=== PATIENT | female | born 1975 | race Caucasian/White ===

== ENCOUNTER 2016-09-08 22:08 | Emergency (ER) | payer MEDICAID ==
[~2016-09-08] VITALS: Ht 175.3 cm; Wt 74.8 kg
[~2016-09-08 22:08] MED LIST: BACTRIM-DS1 EA ORAL; MELOXICAM7.5 MG PO; NORCO 10-325 T1 EACH ORAL; SERTRALINE HCL100 MG PO; VIBRAMYCIN100 MG ORAL
[2016-09-09] MEDS ORDERED: Morphine Sulfate 4mg/ml Inj IM ONE (00:15)
[2016-09-09] MEDS ORDERED: Cephalexin 500mg cap ORAL ONE (00:15)
[2016-09-09] MEDS ORDERED: PredniSONE 20mg tab ORAL ONE (00:15)
[2016-09-09 00:40] VITALS: BP_SYST 122; BP_SYST 129; BP_DIAS 78; BP_DIAS 81
[2016-09-09] MEDS ORDERED: KEFLEX500 MG ORAL (00:48)
[2016-09-09] MEDS ORDERED: PREDNISONE20 MG ORAL (00:48)
[2016-09-09] MEDS ORDERED: NORCO 5-325 TA1 EACH ORAL (00:48)
--- NOTE | 2016-09-09 05:26 | Emergency Room Report ---
History of Present Illness General Chief Complaint: Upper Extremity Injury Source: Patient Present Illness HPI 41-year-old female presents to ED complaining of right hand pain and swelling x2 days. Patient notes history of lupus and states she is likely having a lupus flare. No swelling to the right wrist. Pain as throbbing, 10 out of 10, nonradiating. Denies any fevers or chills. Patient also notes redness and pain to her right index finger. Believes that she may have been bitten by an insect yesterday. Denies any discharge. No other aggravating relieving factors. Denies any other associated symptoms Allergies: Coded Allergies: AZITHROMYCIN (Verified Allergy, Intermediate, 11/15/15) SULFAMETHOXAZOLE (Verified Allergy, Intermediate, 12/01/15) TRIMETHOPRIM (Verified Allergy, Intermediate, 12/01/15) Shrimp (Verified Allergy, Unknown, 09/08/16) Patient History Past Medical History: other - lupus Past Surgical History: none Pertinent Family History: none Social History: Denies: alcohol use, drug use, smoking Last Menstrual Period: 2 WEEKS AGO Now: No : 2 Immunizations: UTD Reviewed Nursing Documentation: PMH: Agreed, PSxH: Agreed Nursing Documentation-PMH Hx Cardiac Problems: No - RA Hx Cancer: Yes - CERVICAL CA 2010 Hx Seizures: No - LUPUS Review of Systems All Other Systems: negative except mentioned in HPI Physical Exam Vital Signs Date Time Temp Pulse Resp B/P Pulse Ox O2 Delivery O2 Flow Rate FiO2 09/08/16 22:17 97.9 74 18 122/78 96 Room Air Sp02 EP Interpretation: reviewed, normal General Appearance: no apparent distress, alert, GCS 15, non-toxic Head: normocephalic Eyes: bilateral eye PERRL, bilateral eye normal inspection ENT: normal ENT inspection Neck: normal inspection Respiratory: normal inspection Cardiovascular #1: normal inspection Gastrointestinal: normal inspection Rectal: deferred Genitourinary: no CVA tenderness Musculoskeletal: swelling - R wrist., tender - erythema/induration R index finger Neurologic: alert, oriented x3, responsive, motor strength/tone normal, sensory intact, speech normal Psychiatric: normal inspection Skin: normal inspection Lymphatic: normal inspection Medical Decision Making Diagnostic Impression: Primary Impression: Lupus Qualified Codes: M32.9 - Systemic lupus erythematosus, unspecified Additional Impression: Cellulitis Qualified Codes: L03.011 - Cellulitis of right finger ER Course Hospital Course 41-year-old female presents to ED with redness, swelling to right wrist Differential diagnoses include: Cellulitis, dermatitis, insect bite, abscess Clinical course Patient placed on stretcher. After initial history, physical exam reveals a young female in no acute distress. On exam there is a site for mild erythema and induration to the right index finger. There is no fluctuance. There is no tenderness. There is some mild swelling to the right wrist in general. Patient states that is typical of her lupus flare Given morphine IM, given prednisone and given Keflex in ED Diagnosis - lupus, cellulitis of finger stable and discharged to home with prescription for prednisone, [place], Keflex. Instructed to followup with PMD. Instructed return to ED if symptoms recur or worsen Last Vital Signs Date Time Temp Pulse Resp B/P Pulse Ox O2 Delivery O2 Flow Rate FiO2 09/09/16 00:40 68 18 129/81 99 Room Air 09/09/16 00:40 97.9 Status: improved Disposition: HOME, SELF-CARE Condition: Stable Scripts Hydrocodone Bit/Acetaminophen 5-325* (NORCO 5-325*) 1 Each Tablet 1 TAB ORAL Q6H Y for For Pain, #10 TAB 0 Refills Prov: OLEKSANDR JAVIER M.D. 09/09/16 Prednisone* (PREDNISONE*) 20 Mg Tablet 40 MG ORAL DAILY, #10 TAB Prov: OLEKSANDR JAVIER M.D. 09/09/16 Cephalexin* (KEFLEX*) 500 Mg Capsule 500 MG ORAL Q6H, #28 CAP 0 Refills Prov: OLEKSANDR JAVIER M.D. 09/09/16 Referrals: [facility],REFERRING (PCP) Patient Instructions: Cellulitis, [id number] OLEKSANDR JAVIER M.D. September 09, 2016 05:26
== END 2016-09-09 00:45 | disposition home or self-care (01) ==
LOC: EMR 22:50
DX: M32.9 Systemic lupus erythematosus, unspecified (principal); L03.011 Cellulitis of right finger; M79.641 Pain in right hand; Z88.2 Allergy status to sulfonamides; M79.89 Other specified soft tissue disorders; Z88.1 Allergy status to other antibiotic agents; Z91.013 Allergy to seafood; Z85.41 Personal history of malignant neoplasm of cervix uteri
CPT/HCPCS: 96372; 99284; J2270

== ENCOUNTER 2017-06-30 21:01 | Emergency (ER) | payer MEDICAID ==
[~2017-06-30] VITALS: Ht 175.3 cm; Wt 77.1 kg
[~2017-06-30 21:01] MED LIST changes: +KEFLEX500 MG ORAL; +NORCO 5-325 TA1 EACH ORAL; +PREDNISONE20 MG ORAL
--- NOTE | 2017-06-30 21:37 | Emergency Room Report ---
History of Present Illness General Chief Complaint: Back Pain-No Injury Source: Patient Present Illness HPI Patient presents complaining that she is having a flareup of her lupus she reports that she also has right flank and right back pain that has also exacerbated Questionable low-grade fever at home Denies any headache and has been neck pain and denies any chest pain or shortness of breath denies any vomiting or diarrhea Patient feels achy with myalgia diffusely in her upper arms and legs as well denies any recent travel denies any trauma Allergies: Coded Allergies: SULFAMETHOXAZOLE (Verified Allergy, Intermediate, 12/01/15) TRIMETHOPRIM (Verified Allergy, Intermediate, 12/01/15) CITALOPRAM (Verified Allergy, Unknown, 06/30/17) ERYTHROMYCIN BASE (Verified Allergy, Unknown, 06/30/17) Shrimp (Verified Allergy, Unknown, 09/08/16) Patient History Past Medical History: see triage record Pertinent Family History: none Last Menstrual Period: 2 months ago Reviewed Nursing Documentation: PMH: Agreed, PSxH: Agreed Nursing Documentation-PMH Hx Cardiac Problems: No - RA Hx Cancer: Yes - CERVICAL CA 2010 Hx Seizures: No - LUPUS Review of Systems All Other Systems: negative except mentioned in HPI Physical Exam Vital Signs Date Time Temp Pulse Resp B/P (MAP) Pulse Ox O2 Delivery O2 Flow Rate FiO2 06/30/17 21:09 98.6 77 16 103/ 97 Room Air 98.6 Sp02 EP Interpretation: reviewed, normal General Appearance: well appearing, no apparent distress Head: normocephalic, atraumatic Eyes: bilateral eye PERRL, bilateral eye EOMI ENT: hearing grossly normal, normal pharynx, TMs + canals normal, uvula midline Neck: full range of motion, supple, no meningismus, no bony tend Respiratory: lungs clear, normal breath sounds, no rhonchi, no respiratory distress, no retraction, no accessory muscle use Cardiovascular #1: normal peripheral pulses, regular rate, rhythm, no edema, no gallop, no JVD, no murmur Gastrointestinal: normal bowel sounds, non tender, soft, no mass, no organomegaly, non-distended, no guarding, no hernia, no pulsatile mass, no rebound Genitourinary: no CVA tenderness Musculoskeletal: normal inspection Neurologic: oriented x3, responsive, family support worker III-XII nml as tested, motor strength/ tone normal, sensory intact Psychiatric: mood/affect normal Skin: normal color, no rash, warm/dry, palpation normal Lymphatic: normal inspection, no adenopathy Medical Decision Making Diagnostic Impression: Primary Impression: lupus flare Additional Impression: Lupus (systemic lupus erythematosus) ER Course Multiple differentials considered Including but not limited to hemodynamic, metabolic Pulmonary pathology such as pulmonary embolism Cardiac pathology Patient otherwise appears comfortable lung sounds are clear no signs of any hypoxia or tachycardia Patient's urine sample is also clear Chest x-ray normal has felt significantly better This I will have initial conservative outpatient trial Labs Test 06/30/17 21:49 Urine Color Yellow Urine Appearance Clear Urine pH 7 (4.5-8.0) Urine Specific [place] 1.015 (1.005-1.035) Urine Protein Negative (NEGATIVE) Urine Glucose (UA) Negative (NEGATIVE) Urine Ketones Negative (NEGATIVE) Urine Occult Blood 1+ (NEGATIVE) Urine Nitrite Negative (NEGATIVE) Urine Bilirubin Negative (NEGATIVE) Urine Urobilinogen 1 MG/DL (0.0-1.0) Urine Leukocyte Esterase 1+ (NEGATIVE) Urine RBC 2-4 /HPF (0 - 2) Urine WBC 0-2 /HPF (0 - 2) Urine Squamous Epithelial Cells Few /LPF (NONE/OCC) Urine Bacteria Few /HPF (NONE) Urine HCG, Qualitative Negative Chest X-Ray Diagnostic Results Chest X-Ray Diagnostic Results : Chest X-Ray Ordered: Yes # of Views/Limited/Complete: 1 View Indication: Chest Pain EP Interpretation: Yes Interpretation: no consolidation, no effusion, no pneumothorax, no acute cardiopulmonary disease Impression: No acute disease Electronically Signed by: Romario Storey DO Last Vital Signs Date Time Temp Pulse Resp B/P (MAP) Pulse Ox O2 Delivery O2 Flow Rate FiO2 06/30/17 21:09 98.6 77 16 103/ 97 Room Air 98.6 Status: improved Disposition: HOME, SELF-CARE Condition: Improved Scripts Hydrocodone Bit/Acetaminophen 5-325* (NORCO 5-325*) 1 Each Tablet 1 TAB ORAL Q6H Y for For Pain, #5 TAB 0 Refills Prov: ROMARIO STOREY.Adan 06/30/17 Prednisone* (PREDNISONE*) 20 Mg Tablet 20 MG ORAL BID, #10 TAB Prov: ROMARIO STOREY D.O. 06/30/17 Additional Instructions: Patient is provided with the discharge instructions notified to follow up with primary doctor in the next 2-3 days otherwise return to the er with any worsening symptoms. Please note that this report is being documented using [employer] technology. This can lead to erroneous entry secondary to incorrect interpretation by the dictating instrument. ROMARIO STOREY D.O. Jun 30, 2017 21:37
[2017-06-30] MEDS ORDERED: Morphine Sulfate 10mg/ml Inj IM ONE (21:45)
[2017-06-30 22:09] LABS: APPEARANCE,URINE CLEAR; BILIRUBIN, URINE NEGATIVE (NEGATIVE); GLUCOSE, URINE (UA) NEGATIVE (NEGATIVE); KETONES,URINE NEGATIVE (NEGATIVE); LEUKOCYTE ESTERASE ,URINE 1+ (NEGATIVE); NITRITE,URINE NEGATIVE (NEGATIVE); PH,URINE 7 (4.5-8.0); PROTEIN,URINE NEGATIVE (NEGATIVE); UROBILINOGEN,URINE 1 MG/DL (0.0-1.0)
[2017-06-30 22:12] LABS: COLOR,URINE YELLOW
[2017-06-30] MEDS ORDERED: NORCO 5-325 TA1 EACH ORAL (22:23)
[2017-06-30] MEDS ORDERED: PREDNISONE20 MG ORAL (22:23)
[2017-06-30 22:41] VITALS: BP 103/68
--- NOTE | 2017-07-01 10:20 | Diagnostic Imaging Report ---
Indication: Dyspnea Comparison: None A single view chest radiograph was obtained. Findings: Cardiomediastinal appearance is within normal limits for age. Pulmonary vascularity is appropriate. The diaphragmatic contour is smooth and costophrenic angles are sharp. No pleural effusions are identified. The bones are unremarkable. Impression: No acute findings
== END 2017-06-30 22:44 | disposition home or self-care (01) ==
LOC: EMR 22:20
DX: M32.9 Systemic lupus erythematosus, unspecified (principal); Z85.41 Personal history of malignant neoplasm of cervix uteri; Z88.2 Allergy status to sulfonamides; Z88.1 Allergy status to other antibiotic agents; Z91.013 Allergy to seafood
CPT/HCPCS: 71045; 81003; 81025; 96372; 99284; J2270; J7512

== ENCOUNTER 2017-07-02 20:38 | Emergency (ER) | payer MEDICAID ==
[~2017-07-02] VITALS: Ht 175.3 cm; Wt 77.1 kg
[2017-07-02 21:56] LABS: APPEARANCE,URINE SLIGHTLY CLOUDY; BILIRUBIN, URINE NEGATIVE (NEGATIVE); GLUCOSE, URINE (UA) NEGATIVE (NEGATIVE); KETONES,URINE NEGATIVE (NEGATIVE); LEUKOCYTE ESTERASE ,URINE 1+ (NEGATIVE); NITRITE,URINE NEGATIVE (NEGATIVE); PH,URINE 5 (4.5-8.0); PROTEIN,URINE NEGATIVE (NEGATIVE); UROBILINOGEN,URINE NORMAL MG/DL (0.0-1.0)
[2017-07-02 21:58] LABS: COLOR,URINE YELLOW
--- NOTE | 2017-07-02 23:21 | Emergency Room Report ---
History of Present Illness General Chief Complaint: Lower Back Pain or Injury Source: Patient, Medical Record Present Illness HPI This is a 42-year-old female with a history of lupus. She has a little bit exacerbation about 2 days ago. Was seen here and started on steroid. Since then she's been complaining of back pain with increasing urinary frequency. No dysuria or hematuria. She was concerned that she may have urine tract infection. Pain is better after pain medication. Allergies: Coded Allergies: SULFAMETHOXAZOLE (Verified Allergy, Intermediate, 12/01/15) TRIMETHOPRIM (Verified Allergy, Intermediate, 12/01/15) CITALOPRAM (Verified Allergy, Unknown, 06/30/17) ERYTHROMYCIN BASE (Verified Allergy, Unknown, 06/30/17) Shrimp (Verified Allergy, Unknown, 09/08/16) Patient History Past Medical History: see triage record, old chart reviewed Past Surgical History: other Pertinent Family History: none Social History: Denies: smoking Last Menstrual Period: 2 months ago Now: No : 2 Immunizations: other Reviewed Nursing Documentation: PMH: Agreed, PSxH: Agreed Nursing Documentation-PMH Hx Cardiac Problems: No - RA Hx Cancer: Yes - CERVICAL CA 2010 Hx Seizures: No - LUPUS Review of Systems Eye: Denies: eye pain, blurred vision ENT: Denies: ear pain, nose congestion, throat swelling Respiratory: Denies: cough, shortness of breath Cardiovascular: Denies: chest pain, palpitations Gastrointestinal: Denies: abdominal pain, diarrhea, nausea, vomiting Genitourinary: Reports: frequency Musculoskeletal: Reports: back pain, Denies: joint pain Skin: Denies: rash Neurological: Denies: headache, numbness Endocrine: Denies: increased thirst, increased urine Hematologic/Lymphatic: Denies: easy bruising All Other Systems: negative except mentioned in HPI Physical Exam Vital Signs Date Time Temp Pulse Resp B/P (MAP) Pulse Ox O2 Delivery O2 Flow Rate FiO2 07/02/17 21:09 98.5 61 18 110/68 99 Room Air 98.4 vitals normal Sp02 EP Interpretation: reviewed, normal General Appearance: well appearing, no apparent distress, alert Head: normocephalic, atraumatic Eyes: bilateral eye PERRL, bilateral eye EOMI ENT: hearing grossly normal, normal pharynx Neck: full range of motion, supple, no meningismus Respiratory: chest non-tender, lungs clear, normal breath sounds Cardiovascular #1: regular rate, rhythm, no murmur Gastrointestinal: normal bowel sounds, non tender, no mass, no organomegaly, no bruit, non-distended Musculoskeletal: back normal, gait/station normal, normal range of motion Psychiatric: mood/affect normal Skin: warm/dry Medical Decision Making Diagnostic Impression: Primary Impression: Low back pain Qualified Codes: M54.5 - Low back pain ER Course Patient with back pain. No evidence of UTI. She does have calcium oxalate in her urine still I got a CT scan to rule out kidney stone. That was negative. We'll discharge home with reassurance. No evidence of infection. No evidence of dissection or acute abdomen. No evidence of cauda equina syndrome, spinal epidural abscess or neoplastic process. CT/MRI/US Diagnostic Results CT/MRI/US Diagnostic Results : Imaging Test Ordered: ct abd /pelvis Impression Neg per radiologist. Last Vital Signs Date Time Temp Pulse Resp B/P (MAP) Pulse Ox O2 Delivery O2 Flow Rate FiO2 07/02/17 21:09 98.5 61 18 110/68 99 Room Air 98.4 Status: improved Disposition: HOME, SELF-CARE Condition: Stable Patient Instructions: Back Pain, Adult Additional Instructions: Follow-up with doctor in 7 days. Return if worse. HANK REAGAN M.D. Jul 02, 2017 23:21
[2017-07-02 23:32] VITALS: BP 115/71
--- NOTE | 2017-07-03 09:11 | Diagnostic Imaging Report ---
Indication: Urinary frequency and discomfort. History of lupus Technique: Spiral acquisitions obtained through the abdomen and pelvis. No oral contrast utilized, per emergency room physician request No IV contrast utilized, per referring physician request.. Multiplanar reconstructions were generated. Total dose length product 943.33 mGycm. CTDIvol(s) 17.93 mGy. Dose reduction achieved using automated exposure control Comparison: None Findings: No renal or ureteral calculi, hydronephrosis, hydroureter, or significant perinephric fat stranding. Lack of IV contrast limits assessment of the renal parenchyma. There is a 16 mm cyst in the medial right upper pole. Incidental finding is noted of a circumaortic left renal vein Lack of IV contrast limits assessment of the other solid organs. The liver, gallbladder, bile ducts, pancreas, spleen, adrenals are unremarkable. No retroperitoneal or mesenteric mass or adenopathy. No pelvic mass or adenopathy. The bladder is nondistended. Somewhat dense stool is seen in the distal colon Moderate amount of retained fecal material is seen proximally as well. The appendix is not definitely visualized, but no findings to suggest acute appendicitis are evident. No evidence of diverticulosis or diverticulitis. No small bowel distention. No free or loculated intraperitoneal air or fluid. Distal esophagus, stomach, duodenum are unremarkable. The included lung bases are clear. The bones are unremarkable except for degenerative changes of the lumbosacral junction.. Impression: Essentially unremarkable exam. No acute or significant abnormality Moderate retained fecal debris, could indicate constipation Incidental finding of left renal cyst and degenerative spondylosis. This agrees with the preliminary interpretation provided overnight by [facility] teleradiology service. The CT scanner at [facility] is accredited by the [employer] and the scans are performed using protocols designed to limit radiation exposure to as low as reasonably achievable to attain images of sufficient resolution adequate for diagnostic evaluation.
== END 2017-07-02 23:33 | disposition home or self-care (01) ==
LOC: EMR 21:37
DX: M54.5 Low back pain (principal); M32.9 Systemic lupus erythematosus, unspecified; Z88.2 Allergy status to sulfonamides; Z91.013 Allergy to seafood; Z85.41 Personal history of malignant neoplasm of cervix uteri; M47.817 Spondylosis without myelopathy or radiculopathy, lumbosacral region; N28.1 Cyst of kidney, acquired
CPT/HCPCS: 74176; 81003; 81025; 99284

== ENCOUNTER 2017-11-23 14:32 | Emergency (ER) | payer MEDICAID ==
[~2017-11-23] VITALS: Ht 175.3 cm; Wt 99.8 kg
[2017-11-23 14:58] VITALS: BP 103/61
[2017-11-23] MEDS ORDERED: Isovue-300 100ml vial INJ PRN (15:30)
[2017-11-23 15:47] LABS: APPEARANCE,URINE CLEAR; BILIRUBIN, URINE NEGATIVE (NEGATIVE); GLUCOSE, URINE (UA) NEGATIVE (NEGATIVE); KETONES,URINE NEGATIVE (NEGATIVE); LEUKOCYTE ESTERASE ,URINE 1+ (NEGATIVE); NITRITE,URINE NEGATIVE (NEGATIVE); PH,URINE 7 (4.5-8.0); PROTEIN,URINE NEGATIVE (NEGATIVE); UROBILINOGEN,URINE 1 MG/DL (0.0-1.0)
[2017-11-23 15:49] LABS: COLOR,URINE YELLOW
[2017-11-23 16:53] LABS: BASOPHILS % (AUTO) 0.9 % (0.0-2.0); HEMATOCRIT 39.5 % (37.0-47.0); HEMOGLOBIN 13.8 G/DL (12.0-16.0); LYMPHOCYTES % (AUTO) 37.3 % (20.0-45.0); MEAN CORPUSCULAR VOLUME 86 FL (80-99); MONOCYTES % (AUTO) 6.4 % (1.0-10.0); NEUTROPHILS % (AUTO) 53.4 % (45.0-75.0); PLATELET COUNT 313 K/UL (150-450); RED BLOOD COUNT 4.61 M/UL (4.20-5.40); RED CELL DISTRIBUTION WIDTH 11.1 % (11.6-14.8); WHITE BLOOD COUNT 7.7 K/UL (4.8-10.8)
[2017-11-23 17:03] LABS: ANION GAP 8 mmol/L (5-15); BLOOD UREA NITROGEN 10 mg/dL (7-18); CALCIUM 9.9 MG/DL (8.5-10.1); CARBON DIOXIDE 27 MMOL/L (21-32); CHLORIDE 102 MMOL/L (98-107); CREATININE 0.8 MG/DL (0.55-1.30); POTASSIUM 3.9 MMOL/L (3.5-5.1); SODIUM 137 MMOL/L (136-145)
[2017-11-23] MEDS ORDERED: LORazepam Inj 2mg/ml 1ml IV ONE (17:15)
[2017-11-23 17:16] LABS: ALANINE AMINOTRANSFERASE 49 U/L (12-78); ALBUMIN 3.7 G/DL (3.4-5.0); ALBUMIN/GLOBULIN RATIO 0.9 (1.0-2.7); ALKALINE PHOSPHATASE 115 U/L (46-116); AMYLASE 46 U/L (25-115); ASPARTATE AMINO TRANSFERASE 32 U/L (15-37); BILIRUBIN,TOTAL 0.5 MG/DL (0.2-1.0)
--- NOTE | 2017-11-23 19:38 | Emergency Room Report ---
History of Present Illness General Chief Complaint: Pain Source: Patient Present Illness HPI 42-year-old female presents to the emergency department complaining of 8 out of 10 in severity generalized abdominal pain with distention, edema of the bilateral hands and feet as well as face, moderate fatigue and 27 pound weight gain times one week. Patient reports hot flashes she denies chills. She denies constipation or diarrhea reports last bowel movement was today. Patient is able to pass gas. She reports she has a history of lupus. She denies recent travel or recent steroid use. She reports nausea denies vomiting. Patient denies . Denies dysuria, hematuria or urinary frequency. Patient states that on occasion her abdominal pain will radiate towards the back. Denies trauma or fall. Allergies: Coded Allergies: SULFAMETHOXAZOLE (Verified Allergy, Intermediate, 12/01/15) TRIMETHOPRIM (Verified Allergy, Intermediate, 12/01/15) CITALOPRAM (Verified Allergy, Unknown, 06/30/17) ERYTHROMYCIN BASE (Verified Allergy, Unknown, 06/30/17) Shrimp (Verified Allergy, Unknown, 09/08/16) Patient History Last Menstrual Period: "months" Now: No Nursing Documentation-[facility] Past Medical History: No History, Except For Hx Cardiac Problems: No - RA Hx Cancer: Yes - CERVICAL CA 2010 Hx Seizures: No - LUPUS Review of Systems All Other Systems: negative except mentioned in HPI Physical Exam Vital Signs Date Time Temp Pulse Resp B/P (MAP) Pulse Ox O2 Delivery O2 Flow Rate FiO2 11/23/17 14:35 98.0 63 18 103/61 98 Room Air 98.1 Sp02 EP Interpretation: reviewed, normal General Appearance: no apparent distress, alert, GCS 15, non-toxic Head: normocephalic, atraumatic Eyes: bilateral eye normal inspection, bilateral eye PERRL ENT: hearing grossly normal, normal voice Neck: full range of motion Respiratory: lungs clear, normal breath sounds, no wheezing, speaking full sentences Cardiovascular #1: regular rate, rhythm, edema - 2+ nonpitting edema to the bilateral hands and feet Gastrointestinal: normal bowel sounds, soft, no peritonitis, no guarding, distended, tenderness - Mild generalized tenderness. Rectal: deferred Genitourinary: normal inspection, no CVA tenderness Musculoskeletal: back normal, gait/station normal, normal range of motion, non- tender Neurologic: alert, oriented x3, responsive, motor strength/tone normal, sensory intact, normal gait, speech normal, grossly normal Psychiatric: judgement/insight normal Skin: normal color, no rash, warm/dry, well hydrated Lymphatic: no adenopathy Medical Decision Making PA Attestation Dr. domínguez is my supervising Physician whom patient management has been discussed with. Diagnostic Impression: Primary Impression: Lupus Qualified Codes: M32.9 - Systemic lupus erythematosus, unspecified ER Course 42-year-old female presents to the emergency department complaining of 8 out of 10 in severity generalized abdominal pain with distention, edema of the bilateral hands and feet as well as face, moderate fatigue and 27 pound weight gain times one week. Patient reports hot flashes she denies chills. She denies constipation or diarrhea reports last bowel movement was today. Patient is able to pass gas. She reports she has a history of lupus. She denies recent travel or recent steroid use. She reports nausea denies vomiting. Patient denies . Denies dysuria, hematuria or urinary frequency. Patient states that on occasion her abdominal pain will radiate towards the back. Denies trauma or fall. Ddx considered but are not limited to Diverticulitis, acute appy, diarrhea,UC, PUD, GE, pancreatitis, gallstone, ovarian torsion, ectopic , PID tubo-ovarian abscess, lupus flare, hypothyroid just to name a few Vital signs: are WNL, pt. is afebrile H&PE are most consistent with Distended abdomen and bilateral hand and feet edema, patient is nontoxic in appearance. ORDERS: -CBC, CMP, LIPASE: Unremarkable -UA: Unremarkable -URINE HCG: Negative TSH: Normal : 242 CT abdomen and pelvis with contrast: Unremarkable no acute intra-abdominal process per radiology ED INTERVENTIONS: -PO zofran 4mg. -1 milligram Ativan IV -Kamilla-umedrol IV 125mg I discussed this patient that she had normal laboratory values as well as normal CT imaging. Discussed with this patient that if she continues to not feel well that she can be admitted for further evaluation and IV steroids. Discussed with this patient that after process of elimination most likely cause of her symptoms are Lupus flare. She reports that she will be make an appointment to follow-up with her primary care provider on Thursday. I discussed with this patient that she can return to the emergency department at any time if she experiences worsening or new symptoms or decides that she wants further evaluation. Patient will be discharged with oral steroid burst. DISCHARGE: At this time pt. is stable for d/c to home. Will provide printed patient care instructions, and any necessary prescriptions. Care plan and follow up instructions have been discussed with the patient prior to discharge. Labs Test 11/23/17 14:30 11/23/17 16:30 Urine Color Yellow Urine Appearance Clear Urine pH 7 (4.5-8.0) Urine Specific [place] 1.010 (1.005-1.035) Urine Protein Negative (NEGATIVE) Urine Glucose (UA) Negative (NEGATIVE) Urine Ketones Negative (NEGATIVE) Urine Occult Blood Negative (NEGATIVE) Urine Nitrite Negative (NEGATIVE) Urine Bilirubin Negative (NEGATIVE) Urine Urobilinogen 1 MG/DL (0.0-1.0) Urine Leukocyte Esterase 1+ (NEGATIVE) Urine RBC 0-2 /HPF (0 - 2) Urine WBC 0-2 /HPF (0 - 2) Urine Squamous Epithelial Cells Few /LPF (NONE/OCC) Urine Bacteria Few /HPF (NONE) Urine HCG, Qualitative Negative (NEGATIVE) White Blood Count 7.7 K/UL (4.8-10.8) Red Blood Count 4.61 M/UL (4.20-5.40) Hemoglobin 13.8 G/DL (12.0-16.0) Hematocrit 39.5 % (37.0-47.0) Mean Corpuscular Volume 86 FL (80-99) Mean Corpuscular Hemoglobin 29.9 PG (27.0-31.0) Mean Corpuscular Hemoglobin Concent 34.8 G/DL (32.0-36.0) Red Cell Distribution Width 11.1 % (11.6-14.8) Platelet Count 313 K/UL (150-450) Mean Platelet Volume 6.6 FL (6.5-10.1) Neutrophils (%) (Auto) 53.4 % (45.0-75.0) Lymphocytes (%) (Auto) 37.3 % (20.0-45.0) Monocytes (%) (Auto) 6.4 % (1.0-10.0) Eosinophils (%) (Auto) 2.0 % (0.0-3.0) Basophils (%) (Auto) 0.9 % (0.0-2.0) Sodium Level 137 MMOL/L (136-145) Potassium Level 3.9 MMOL/L (3.5-5.1) Chloride Level 102 MMOL/L (98-107) Carbon Dioxide Level 27 MMOL/L (21-32) Anion Gap 8 mmol/L (5-15) Blood Urea Nitrogen 10 mg/dL (7-18) Creatinine 0.8 MG/DL (0.55-1.30) Estimat Glomerular Filtration Rate > 60 mL/min (>60) Glucose Level 79 MG/DL (74-106) Calcium Level 9.9 MG/DL (8.5-10.1) Total Bilirubin 0.5 MG/DL (0.2-1.0) Aspartate Amino Transf (AST/SGOT) 32 U/L (15-37) Alanine Aminotransferase (ALT/SGPT) 49 U/L (12-78) Alkaline Phosphatase 115 U/L (46-116) Total Protein 7.8 G/DL (6.4-8.2) Albumin 3.7 G/DL (3.4-5.0) Globulin 4.1 g/dL Albumin/Globulin Ratio 0.9 (1.0-2.7) Amylase Level 46 U/L (25-115) Lipase 122 U/L (73-393) Thyroid Stimulating Hormone (TSH) 2.472 uiU/mL (0.358-3.740) CT/MRI/US Diagnostic Results CT/MRI/US Diagnostic Results : Imaging Test Ordered: CT abdomen and pelvis with IV and oral contrast Impression "Bowel is nondilated, no free air or diverticulitis or hydronephrosis spleen, pancreas, gallbladder and liver unremarkable tiny fat-containing periumbilical hernia"-- Per official radiology report- Please see report for specific details. Last Vital Signs Date Time Temp Pulse Resp B/P (MAP) Pulse Ox O2 Delivery O2 Flow Rate FiO2 11/23/17 14:58 98.1 63 18 103/61 98 Room Air 98.1 Disposition: HOME, SELF-CARE Condition: Stable Scripts Prednisone* (PREDNISONE*) 20 Mg Tablet 40 MG ORAL DAILY, #10 TAB Prov: Reyna Rey 11/23/17 Referrals: VIRGILIO OLIVER,REFERRING (PCP) Patient Instructions: Systemic Lupus Erythematosus, Adult Additional Instructions: Take medications as directed. Follow up with a Primary Care Provider in 3-5 days, even if your symptoms have resolved. --Please review list of primary care clinics, if you do not already have a primary care provider Return sooner to ED if new symptoms occur, or current symptoms become worse. - Please note that this Emergency Department Report was dictated using [employer] crane operator technology software, occasionally this can lead to erroneous entry secondary to interpretation by the dictation equipment. Reyna Rey Nov 23, 2017 19:38
[2017-11-23] MEDS ORDERED: Solu-MEDROL 125mg Inj IVP ONE (19:45)
[2017-11-23] MEDS ORDERED: PREDNISONE20 MG ORAL (20:05)
[2017-11-23 20:14] VITALS: BP 99/64
--- NOTE | 2017-11-24 09:56 | Diagnostic Imaging Report ---
Indication: Abdominal pain, nausea, vomiting Technique: CT of the abdomen and pelvis utilizing automated exposure control with intravenous contrast. Venous scanning performed. Axial, sagittal and coronal reformats presented. CT dose: Total DLP 1110.89 mGycm; CTDI vol 19.51 mGy Comparison: 07/02/2017 Findings: Minimal dependent atelectatic changes noted in the lung bases. Heart size within normal limits. No pericardial effusion. Liver, r,spleen, pancreas and adrenal glands grossly unremarkable. There are well circumscribed low-attenuation lesions in the bilateral kidneys which are too small to fully characterize but most likely represent simple cysts. These were suggested on the prior exam. There is no hydronephrosis or urinary tract stone. Bladder is decompressed, precluding reliable evaluation. Uterus and adnexa are grossly unremarkable. There is no free intraperitoneal air or fluid. No evidence of bowel obstruction or definite inflammatory change in the mesentery. Appendix not definitively identified however there is no focal inflammatory stranding in the right lower quadrant to suggest acute appendicitis. Abdominal aorta is normal in caliber. No pathologically enlarged lymphadenopathy is appreciated. There is a tiny fat-containing umbilical hernia. There is mild degenerative change of the spine most pronounced at L5-S1. No acute osseous abnormality identified. IMPRESSION: * No evidence of acute intra-abdominal pathology. * Tiny fat-containing umbilical hernia. * Degenerative change of the lower lumbar spine. This corresponds with the statrad preliminary report. The CT scanner at [facility] is accredited by the [employer] and the scans are performed using protocols designed to limit radiation exposure to as low as reasonably achievable to attain images of sufficient resolution adequate for diagnostic evaluation.
--- NOTE | 2017-11-24 09:57 | Diagnostic Imaging Report ---
Indication: Abdominal pain Technique: XRAY Chest 1v Comparison: 06/30/2017 Findings: Heart size and mediastinal contours are within normal limits and stable compared to the prior exam. There is no focal consolidation, pneumothorax or pleural effusion. Osseous structures demonstrate no acute abnormality. No evidence of free intraperitoneal air under the diaphragm. Impression: No radiographic evidence of acute cardiopulmonary disease.
== END 2017-11-23 20:10 | disposition home or self-care (01) ==
LOC: EMR 15:09
DX: M32.9 Systemic lupus erythematosus, unspecified (principal); Z85.41 Personal history of malignant neoplasm of cervix uteri; Z88.2 Allergy status to sulfonamides; Z91.013 Allergy to seafood; Z88.1 Allergy status to other antibiotic agents
CPT/HCPCS: 36415; 71045; 74177; 80053; 81003; 81025; 82150; 83690; 84443; 85025; 96374; 96375; 99284; J2405; J2930; Q9967

== ENCOUNTER 2017-11-27 20:02 | Emergency (ER) | payer MEDICAID, OTHER ==
[~2017-11-27] VITALS: Ht 175.3 cm; Wt 99.8 kg
[2017-11-27 20:25] VITALS: BP 121/68
[2017-11-27] MEDS ORDERED: Dicyclomine HCl 10mg/5ml oral soln ORAL ONE (20:45)
[2017-11-27] MEDS ORDERED: Lidocaine 2% Visc 15ml soln ORAL ONE (20:45)
[2017-11-27 20:50] LABS: APPEARANCE,URINE CLEAR; BILIRUBIN, URINE NEGATIVE (NEGATIVE); GLUCOSE, URINE (UA) NEGATIVE (NEGATIVE); KETONES,URINE 1+ (NEGATIVE); LEUKOCYTE ESTERASE ,URINE 1+ (NEGATIVE); NITRITE,URINE NEGATIVE (NEGATIVE); PH,URINE 6 (4.5-8.0); PROTEIN,URINE 1+ (NEGATIVE); UROBILINOGEN,URINE 1 MG/DL (0.0-1.0)
[2017-11-27 20:53] LABS: COLOR,URINE YELLOW
[2017-11-27] MEDS ORDERED: Haloperidol 5mg/ml Inj IM ONE (21:15)
[2017-11-27] MEDS ORDERED: DICYCLOMINE HCL10 MG PO (21:29)
[2017-11-27] MEDS ORDERED: OMEPRAZOLE20 M2 ORAL (21:29)
[2017-11-27] MEDS ORDERED: LACTULOSE10 GM/155 PO (21:29)
[2017-11-27 21:50] VITALS: BP 121/68
--- NOTE | 2017-11-27 21:58 | Emergency Room Report ---
History of Present Illness General Chief Complaint: Pain Source: Patient Present Illness HPI Patient is a 42-year-old female who presented after increased abdominal discomfort. Patient reports having a gradual onset of pain. She reports having increased distention to her abdomen for the past few days. She reports having prior history of lupus. She had recent ER visit which was started on prednisone. She denies any significant vomiting or diarrhea. She reports having bowel movements. She denies any fever. She had recently been noted to have increased abdominal discomfort and has had similar episodes in the past. The patient states she smokes marijuana daily. Usually twice a day. The patient smokes cigarettes approximately 2 cigarettes a day currently. Allergies: Coded Allergies: SULFAMETHOXAZOLE (Verified Allergy, Intermediate, 12/01/15) TRIMETHOPRIM (Verified Allergy, Intermediate, 12/01/15) CITALOPRAM (Verified Allergy, Unknown, 06/30/17) ERYTHROMYCIN BASE (Verified Allergy, Unknown, 06/30/17) Shrimp (Verified Allergy, Unknown, 09/08/16) Patient History Past Medical History: see triage record Last Menstrual Period: unknown Now: No Reviewed Nursing Documentation: PMH: Agreed; PSxH: Agreed Nursing Documentation-PMH Hx Cardiac Problems: No - RA Hx Cancer: Yes - CERVICAL CA 2010 Hx Seizures: No - LUPUS Review of Systems All Other Systems: negative except mentioned in HPI Physical Exam Vital Signs Date Time Temp Pulse Resp B/P (MAP) Pulse Ox O2 Delivery O2 Flow Rate FiO2 11/27/17 20:07 98.0 79 18 126/75 99 Room Air 98.1 Sp02 EP Interpretation: reviewed, normal General Appearance: normal inspection, well appearing, no apparent distress, alert, GCS 15, obese Head: atraumatic ENT: normal ENT inspection, hearing grossly normal, normal voice Neck: normal inspection, full range of motion, supple, no bony tend Respiratory: normal inspection, lungs clear, normal breath sounds, no respiratory distress, no retraction, no wheezing Cardiovascular #1: regular rate, rhythm, no edema Gastrointestinal: normal inspection, normal bowel sounds, soft, no guarding, no hernia, tenderness - mild diffuse Genitourinary: no CVA tenderness Musculoskeletal: normal inspection, back normal, normal range of motion Neurologic: normal inspection, alert, oriented x3, responsive, instrument technician helper III-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 Differential diagnoses included ischemic bowel, appendicitis, perforated viscus, abdominal aortic aneurysm, inferior myocardial infarction, viral gastroenteritis Patient has a benign exam and does not appear to require any further imaging or laboratory testing at this time. The urinalysis showed no evidence of infection. Patient was noted to be negative . The patient recent CT imaging at this hospital which showed evidence of no obstruction as well as fat- containing ventral hernia. The patient's symptoms are likely consistent with marijuana-induced abdominal pain as she states this has been somewhat better when she takes a hot shower. The patient the was given IM Haldol for pain as well as a GI cocktail. The patient was given prescription for acid blockers as well as antispasmodics. She is advised follow-up with her primary care physician for reexamination and possible endoscopy.The patient is advised to follow up with primary care doctor. Patient is advised to return if any worsening condition or if any changes in status that are concerning. This report is dictated with [employer] television maintenance worker software which may occasionally lead to discrepancies related to use of this software. Labs Test 11/27/17 20:40 Urine Color Yellow Urine Appearance Clear Urine pH 6 (4.5-8.0) Urine Specific Adah 1.025 (1.005-1.035) Urine Protein 1+ (NEGATIVE) Urine Glucose (UA) Negative (NEGATIVE) Urine Ketones 1+ (NEGATIVE) Urine Occult Blood 1+ (NEGATIVE) Urine Nitrite Negative (NEGATIVE) Urine Bilirubin Negative (NEGATIVE) Urine Urobilinogen 1 MG/DL (0.0-1.0) Urine Leukocyte Esterase 1+ (NEGATIVE) Urine RBC 0-2 /HPF (0 - 2) Urine WBC 0-2 /HPF (0 - 2) Urine Squamous Epithelial Cells Occasional /LPF Urine Calcium Oxalate Crystals Many /LPF (NONE) Urine Bacteria None /HPF (NONE) Urine HCG, Qualitative Negative (NEGATIVE) Urine Opiates Screen Negative (NEGATIVE) Urine Barbiturates Screen Negative (NEGATIVE) Phencyclidine (PCP) Screen Negative (NEGATIVE) Urine Amphetamines Screen Negative (NEGATIVE) Urine Benzodiazepines Screen Negative (NEGATIVE) Urine Cocaine Screen Negative (NEGATIVE) Urine Marijuana (THC) Screen Positive (NEGATIVE) Last Vital Signs Date Time Temp Pulse Resp B/P (MAP) Pulse Ox O2 Delivery O2 Flow Rate FiO2 11/27/17 20:07 98.0 79 18 126/75 99 Room Air 98.1 Status: improved Disposition: HOME, SELF-CARE Condition: Stable Scripts Lactulose (LACTULOSE) 10 Gm/15 Ml Solution 10 GM PO THREE TIMES A DAY, #120 ML Prov: Yong Pino MD 11/27/17 Omeprazole (OMEPRAZOLE) 20 Mg Capsule.dr 20 MG ORAL DAILY, #30 CAP Prov: Yong Pino MD 11/27/17 Dicyclomine Hcl* (DICYCLOMINE HCL*) 10 Mg Capsule 10 MG PO QID, #20 CAP Prov: Yong Pino MD 11/27/17 Patient Instructions: Abdominal Pain, Adult Yong Pino MD Nov 27, 2017 21:58
== END 2017-11-27 21:50 | disposition home or self-care (01) ==
LOC: EMR 20:48
DX: R10.9 Unspecified abdominal pain (principal); M32.9 Systemic lupus erythematosus, unspecified; Z85.41 Personal history of malignant neoplasm of cervix uteri
CPT/HCPCS: 80307; 81003; 81025; 96372; 99283; J1630

== ENCOUNTER 2018-02-06 19:26 | Emergency (ER) | payer MEDICAID ==
[~2018-02-06] VITALS: Ht 175.3 cm; Wt 86.2 kg
[~2018-02-06 19:26] MED LIST changes: +DICYCLOMINE HCL10 MG PO; +LACTULOSE10 GM/155 PO; +OMEPRAZOLE20 M2 ORAL
[2018-02-06 19:56] VITALS: BP 130/73
--- NOTE | 2018-02-06 20:38 | Diagnostic Imaging Report ---
EXAM: CT Head Without Intravenous Contrast CLINICAL HISTORY: PAIN TECHNIQUE: Axial computed tomography images of the head/brain without intravenous contrast. CTDI is 0.15, 72.38 mGy and DLP is 1347 mGy-cm. One or more of the following dose reduction techniques were used: automated exposure control, adjustment of the mA and/or kV according to patient size, use of iterative reconstruction technique. COMPARISON: No relevant prior studies available. FINDINGS: Brain: Unremarkable. No acute hemorrhage. Normal fung-white differentiation. No significant mass effect. Ventricles: Unremarkable. No ventriculomegaly. Bones/joints: Unremarkable. No acute fracture. Soft tissues: Unremarkable. Sinuses: Unremarkable as visualized. No acute sinusitis. Mastoid air cells: Unremarkable. IMPRESSION: No acute intracranial abnormality.
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
--- NOTE | 2018-02-06 21:07 | Diagnostic Imaging Report ---
EXAM: XR Left Knee, 3 views CLINICAL HISTORY: PAIN TECHNIQUE: Three views of the left knee. COMPARISON: No relevant prior studies available. FINDINGS: Bones/joints: No acute fracture or malalignment. Soft tissues: Unremarkable. IMPRESSION: No acute fracture or malalignment.
[2018-02-06] MEDS ORDERED: Bacitracin Oint UD TOPIC ONE (21:15)
[2018-02-06] MEDS ORDERED: TYLENOL EXTRA500 MG ORAL (21:32)
[2018-02-06] MEDS ORDERED: LIDODERM700 M1 TOPIC (21:32)
[2018-02-06] MEDS ORDERED: BACITRACIN-P28.35 GM TP (21:32)
[2018-02-06] MEDS ORDERED: ROBAXIN500 MG PO (21:32)
[2018-02-06 21:40] VITALS: BP 130/73
== END 2018-02-06 21:41 | disposition home or self-care (01) ==
LOC: EMR 20:00
DX: S16.1XXA Strain of muscle, fascia and tendon at neck level, initial encounter (principal); S80.02XA Contusion of left knee, initial encounter; S80.212A Abrasion, left knee, initial encounter; F07.81 Postconcussional syndrome; M54.2 Cervicalgia; V43.52XA Car driver injured in collision with other type car in traffic accident, initial encounter; Y92.410 Unspecified street and highway as the place of occurrence of the external cause; Z88.2 Allergy status to sulfonamides; Z88.8 Allergy status to other drugs, medicaments and biological substances; Z91.013 Allergy to seafood
CPT/HCPCS: 70450; 81025; 96374; 99284